=== PATIENT | female | born 1985 | race Caucasian/White ===

== ENCOUNTER 2016-04-10 21:43 | Outpatient (CLI) | payer MEDICAID, OTHER ==
[~2016-04-10] VITALS: Ht 139.7 cm; Wt 91.8 kg
[~2016-04-10 21:43] MED LIST: FERR27TA; PREN1TAB49
[2016-04-10 22:08] VITALS: Ht 139.7 cm; Wt 91.8 kg
[2016-04-10 22:09] VITALS: BP 113/66; PULSE 71; RESP 18
[2016-04-10] MEDS ORDERED: TERBUTALINE 1 MG/ML INJ SC ONE (22:45)
[2016-04-10 23:07] LABS: ADD UMIC YES; URINE BILIRUBIN (Dip) NEGATIVE (NEGATIVE); URINE BLOOD (Dip) 3+ (NEGATIVE); URINE COLOR LT. YELLOW (YELLOW); URINE GLUCOSE (Dip) NEGATIVE (NEGATIVE); URINE KETONES (Dip) NEGATIVE (NEGATIVE); URINE LEUKOCYTE ESTERASE (Dip) 3+ (NEGATIVE); URINE NITRITE (Dip) NEGATIVE (NEGATIVE); URINE TOTAL PROTEIN (Dip) NEGATIVE (NEGATIVE); URINE UROBILINOGEN (Dip) 0.2 E.U./dL (0.1-1.0)
[2016-04-10 23:38] LABS: BACTERIA,URINE MODERATE; SQUAMOUS EPITHELIAL CELL,UR MANY
--- NOTE | 2016-04-10 23:51 | RADRPT ---
PROCEDURE: Biophysical profile. CLINICAL INDICATION: Pelvic pain. TECHNIQUE: Multiple sonographic images of the pelvis were obtained with transabdominal technique. COMPARISON: No prior studies are available for comparison. FINDINGS: There is a single living intrauterine gestation with the fetus in a vertex position. The placenta i s posterior in location, grade 1. heart tones of 148 beats per minute are identified. There i s low normal amniotic fluid volume with an TOMMY of 8.7 cm. breathing movements = 2 Gross body movements = 2 tone = 2 Qualitative AFV = 2 IMPRESSION: Biophysical profile 8 out of 8. Low normal TOMMY of 8.7 cm. .Sina Connolly MD, Date Time Electronically viewed and signed by .Sina Connolly MD, on 04/10/2016 23:51 .T/
--- NOTE | 2016-04-10 23:51 | RADRPT ---
PROCEDURE: Obstetrical ultrasound, limited. CLINICAL INDICATION: Pelvic pain. TECHNIQUE: Multiple sonographic images of the pelvis were obtained using transabdominal technique . Images were obtained with stapleton scale and color Doppler. The images were reviewed on a PACS works tation. COMPARISON: No prior studies are available for comparison. FINDINGS: There is a single living intrauterine gestation with the fetus in a vertex presentation. hear t tones of 129 beats per minute are identified. The placenta is posterior in location, grade 1. Th ere is no evidence of placenta previa or abruption. Measurements were made in order to determine age. The results are as follows: BPD =8.35 cm HC =30.17 cm AC =31.80 cm FL =6.50 cm. Estimated gestational age of approximately 34 weeks and 1 day. The estimated date of delivery is 05/21/2016. The EFW = 2488 +/- 373 grams. Estimated weight percentage equals 22.6%. IMPRESSION: Single viable intrauterine gestation of approximately 34 weeks and 1 day, with an ultrasound KRISTAN of 05/21/2016. .Sina Connolly MD, MD Date Time Electronically viewed and signed by .Sina Connolly MD, MD on 04/10/2016 23:50 .T/
--- NOTE | 2016-04-11 01:04 | QN ---
Documentation Comment Laborist ER panel pt 30 y.o. with an IUP at 35 weeks 6 days c/o slight spotting in the AM. No leaking. Pt is not aware of any UC's. PMHx:none. PSHx: C/S x 1. POBHx: x 4, C/S x 1 (2014, the last one). NKDA. BP= 113/66. T= 98.3. CX: close/thick/high. EFW 2488 c/w 34 w 1 d. Posterior placenta. VTX. BPP 8/8/ TOMMY 8.7 cm. NST: baseline 130 bpm with accels to 170 bpm. No decels. UC's variable, occasionally q 5 min, occasionally q 15. Pt given 0.25 SQ x 1 the UC's spaced out a lot. Pt is not feeling them. A IUP at 35 weeks 6 days. False labor. P: D/C pt home. F/U at clinic in a few days. FIORELLA DELAROSA MD Apr 11, 2016 01:03
--- NOTE | 2016-04-11 02:25 | TRIAGE ---
OB Triage Datetime Report Generated by CPN: 04/11/2016 02:25 Datetime: 04/11/2016 00:40 Stage of : OB Triage Labor Evaluation Frequency: IRREG Monitor Mode: External Duration (sec)2399: 50-70 Quality: Mild Pattern: Normal: <= 5 Contractions in 10 Minutes Resting Tone Catron: Relaxed Heart Rate FHR Baseline Rate: 130 Monitor Mode: External US Variability: Moderate 6-25 bpm Accelerations: 10X10 Decelerations: None Category: Category I Pain Assessment Pain Presence: None/Denies Datetime: 04/10/2016 23:30 Stage of : OB Triage Labor Evaluation Frequency: IRREG Monitor Mode: External Duration (sec)2399: 50-70 Quality: Mild Pattern: Normal: <= 5 Contractions in 10 Minutes Resting Tone Catron: Relaxed Heart Rate FHR Baseline Rate: 135 Monitor Mode: External US Variability: Moderate 6-25 bpm Accelerations: 10X10 Decelerations: None Category: Category I Pain Assessment Pain Presence: None/Denies Datetime: 04/10/2016 22:40 Vaginal Exam Dilatation (cms): 0.0 Effacement (%): 0 Station: -3 Exam By: CHERELLE Vaginal Bleeding: None Cervix, Consistency: Moderate Cervix, Position: Posterior Datetime: 04/10/2016 22:30 Stage of : OB Triage Temperature Route: Oral Labor Evaluation Frequency: 5-8 Monitor Mode: External Duration (sec)2399: 50-70 Quality: Mild Pattern: Normal: <= 5 Contractions in 10 Minutes Resting Tone Catron: Relaxed Heart Rate FHR Baseline Rate: 135 Monitor Mode: External US Variability: Moderate 6-25 bpm Accelerations: 10X10 Decelerations: None Category: Category I Pain Assessment Pain Presence: None/Denies Datetime: 04/10/2016 22:00 Assessment Type: Triage Maternal Assessment Level of Consciousness: Fully Conscious DTR's/Clonus: DTRs 2+; No Clonus Headache: Denies Blurred Vision: No Respiratory Effort: Unlabored; Regular Rhythm; Equal Expansion Breath Sounds, Left: Clear and Equal Breath Sounds, Right: Clear and Equal Nausea/Vomiting: Denies RUQ Epigastric Pain: Denies Lower Extremities Edema: Bilateral Lower Extremities Upper Extremities Edema: None Facial Edema: None Fall Risk Assessment History of Falling: (0) No Secondary Diagnosis: (0) No Ambulatory Aid: (0) Bedrest/Nurse Assist IV Therapy: (0) No Gait: (0) Normal/Bedrest/Immobile Mental Status: (0) Oriented to Own Ability Fall Score: 0 Fall Risk Score Definition: No Risk: No action required Datetime: 04/10/2016 21:58 Time of Arrival: 04/10/2016 21:40 EGA: 35.5 Arrived By: Wheelchair Arrived From: Home Chief Complaint: SPOTTING SINCE 0700 Movement: Present Contractions: Denies/Absent Rupture of Membranes: Denies Vaginal Discharge: Denies Recent Sexual Intercouse: Denies Abdominal Trauma: Not Applicable Time Provider Notified: 04/10/2016 22:30 Provider Notified: [place] Initial Plan: EFM, ASSESSMENT, CALL MD FOR ORDERS,
== END 2016-04-11 01:00 | disposition home or self-care (01) ==
LOC: OBT 21:43 → L-D 21:45 → OBT 04-11 01:00
PROVIDERS: ATTEND Obstetrics & Gynecology
DX: O47.03 False labor before 37 completed weeks of gestation, third trimester (principal); Z3A.35 35 weeks gestation of pregnancy
CPT/HCPCS: 76815; 76818; 81001; J3105; Z7500; 81003; G0463